=== PATIENT | female | born 1960 | race Caucasian/White ===

== ENCOUNTER → 2017-06-17 | Outpatient (CLI) | payer OTHER | LOC: BMCIMAGING 15:18 | PROVIDERS: ATTEND Internal Medicine Rheumatology | DX: M19.011 Primary osteoarthritis, right shoulder (principal) ==

== ENCOUNTER → 2017-08-19 | Outpatient (CLI) | payer OTHER | LOC: FIMAGING 11:55 | PROVIDERS: ATTEND Orthopaedic Surgery Orthopaedic Surgery of the Spine | DX: Z01.810 Encounter for preprocedural cardiovascular examination (principal) ==

== ENCOUNTER → 2017-09-29 | Outpatient (CLI) | payer OTHER | LOC: FIMAGING 07:28 → EDSTATUS 07:29 | PROVIDERS: ATTEND Orthopaedic Surgery Orthopaedic Surgery of the Spine | DX: Z98.1 Arthrodesis status (principal); R93.0 Abnormal findings on diagnostic imaging of skull and head, not elsewhere classified ==